=== PATIENT | female | born 1955 | race African-American/Black ===

== ENCOUNTER 2016-08-10 20:42 | Emergency (ER) | payer MEDICAID ==
[~2016-08-10] VITALS: Ht 165.1 cm; Wt 54.0 kg
[2016-08-10] MEDS ORDERED: IPRATROPIUM BROMIDE (0.02%) 0.5MG/2.5ML NEB HHN STA (23:40)
[2016-08-10] MEDS ORDERED: MORPHINE SULFATE 4 MG/ML CPJ (NOT FOR IM USE) IV STA (23:40)
[2016-08-10] MEDS ORDERED: ALBUTEROL (0.083%) 2.5MG/3ML NEB HHN STA (23:40)
[2016-08-10] MEDS ORDERED: ONDANSETRON HCL 4MG/2ML VIAL IV STA (23:40)
[2016-08-11 00:02] LABS: BASOPHILS % 1.3 % (0.0-2.0); EOSINOPHILS % 0.7 % (0.0-5.0); HEMATOCRIT. 34.9 % (36.0-48.0); HEMOGLOBIN. 11.6 g/dL (12.0-16.0); LYMPHOCYTES % 45.7 % (20.0-50.0); MEAN CORPUSCULAR HEMOGLOBIN 28.1 pg (28.0-32.0); MEAN CORPUSCULAR VOLUME 84.3 fL (81.0-99.0); MEAN PLATELET VOLUME 8.6 fl (7.4-10.4); MONOCYTES % 10.5 % (2.0-8.0); NEUTROPHILS % 41.8 % (40.0-76.0); PLATELET 187 x1000/uL (130-400); RED BLOOD CELL COUNT 4.14 mill/uL (4.2-5.4); RED CELL DISTRIBUTION WIDTH 13.8 % (11.6-14.6)
[2016-08-11 00:18] LABS: CARBON DIOXIDE 25 mEq/L (21-32); CHLORIDE 110 mEq/L (98-107); TROPONIN I < 0.02 ng/mL (0.00-0.04)
[2016-08-11 03:19] VITALS: BP 125/81
== END 2016-08-11 03:40 | disposition home or self-care (01) ==
LOC: ER 20:51
DX: M79.604 Pain in right leg (principal); R07.89 Other chest pain; R20.0 Anesthesia of skin; R42 Dizziness and giddiness; Z87.891 Personal history of nicotine dependence
CPT/HCPCS: 36415; 71010; 72100; 80053; 84484; 85025; 93005; 94640; 96374; 96375; 99285; J2270; J2405; J7611; Z7610

== ENCOUNTER 2016-09-15 00:25 | Emergency (ER) | payer SELFPAY ==
[~2016-09-15] VITALS: Ht 167.6 cm; Wt 50.0 kg
[2016-09-15 00:29] VITALS: BP 144/96
[2016-09-15] MEDS ORDERED: GABA-529 PO (00:32)
[2016-09-15] MEDS ORDERED: ALBU2.5V13 IH (00:32)
== END 2016-09-15 05:20 | disposition left against medical advice (07) ==
LOC: ER 00:25
DX: Z53.21 Procedure and treatment not carried out due to patient leaving prior to being seen by health care provider (principal)

== ENCOUNTER 2017-07-10 04:20 | Emergency (ER) | payer MEDICAID ==
[~2017-07-10] VITALS: Ht 165.1 cm; Wt 59.0 kg
[~2017-07-10 04:20] MED LIST: ALBU2.5V13 IH; GABA-529 PO
[2017-07-10] MEDS ORDERED: ASPIRIN 81MG TABLET PO ONE (06:30)
[2017-07-10] MEDS ORDERED: NITROGLYCERIN OINT 1GM/INCH UDPKT TD ONE (06:30)
[2017-07-10 06:59] LABS: BASOPHILS % 1.1 % (0.0-2.0); CHLORIDE 109 mEq/L (98-107); EOSINOPHILS % 2.8 % (0.0-5.0); HEMOGLOBIN. 12.4 g/dL (12.0-16.0); LYMPHOCYTES % 51.4 % (20.0-50.0); MEAN CORPUSCULAR HEMOGLOBIN 27.9 pg (28.0-32.0); MEAN CORPUSCULAR VOLUME 83.5 fL (81.0-99.0); MEAN PLATELET VOLUME 8.7 fl (7.4-10.4); MONOCYTES % 11.5 % (2.0-8.0); NEUTROPHILS % 33.2 % (40.0-76.0); PLATELET 181 x1000/uL (130-400); RED BLOOD CELL COUNT 4.43 mill/uL (4.2-5.4); RED CELL DISTRIBUTION WIDTH 14.3 % (11.6-14.6)
[2017-07-10 07:05] LABS: D-DIMER 0.19 mg/L FEU (<0.50); INR 1.1; PROTHROMBIN TIME 11.3 sec (9.4-11.6)
[2017-07-10] MEDS ORDERED: CYCLOBENZAPRINE 10MG TABLET PO ONE (07:15)
[2017-07-10 09:49] VITALS: BP 130/78
== END 2017-07-10 09:51 | disposition home or self-care (01) ==
LOC: ER 04:20
DX: R07.89 Other chest pain (principal); M54.5 Low back pain; G89.29 Other chronic pain; R00.1 Bradycardia, unspecified; D72.819 Decreased white blood cell count, unspecified; F17.200 Nicotine dependence, unspecified, uncomplicated
CPT/HCPCS: 36415; 71045; 80053; 83690; 83880; 84484; 85025; 85379; 85610; 93005; 99285